=== PATIENT | female | born 1985 | race Caucasian/White ===

== ENCOUNTER 2024-11-24 08:58 | Outpatient (OUT) | payer OTHER, SELFPAY ==
[2024-11-24 09:42] LABS: Basophils Absolute Auto 0.1 10^3/uL (0.0-0.1); Basophils Percent Auto 0.6 % (0.2-2.0); Eosinophils Percent Auto 0.4 % (0.9-7.0); Hematocrit 42.5 % (36.0-48.0); Hemoglobin 14.1 g/dL (12.0-16.0); Immature Granulocytes Abs Auto 0.04 10^3/uL (0.00-0.03); Immature Granulocytes Pct Auto 0.4 % (0.0-0.5); Lymphocytes Absolute Auto 1.6 10^3/uL (1.2-3.8); Lymphocytes Percent Auto 17.1 % (20.5-60.0); Mean Corpuscular HGB Conc 33.2 g/dL (29.9-35.2); Mean Corpuscular Hemoglobin 27.7 pg (26.7-34.0); Mean Corpuscular Volume 83.5 fL (81.0-99.0); Mean Platelet Volume 11.2 fL (9.5-13.5); Monocytes Absolute Auto 0.4 10^3/uL (0.3-0.8); Monocytes Percent Auto 4.1 % (1.7-12.0); Neutrophils Absolute Auto 7.4 10^3/uL (1.4-6.5); Neutrophils Percent Auto 77.4 % (43.0-75.0); Platelet Count 235 10^3/uL (150-450); Red Blood Count 5.09 10^6/uL (4.20-5.40); Red Cell Distribution Width 13.7 % (11.0-15.0); White Blood Count 9.5 10^3/uL (4.0-11.0)
[2024-11-24 09:52] LABS: Estimated Average Glucose 120 mg/dL; Glycohemoglobin A1C 5.8 % (4.5-6.2)
[2024-11-24 10:07] LABS: Alanine Aminotransferase 28 U/L (14-59); Albumin Level 3.8 g/dL (3.4-5.0); Alkaline Phosphatase 64 U/L (46-116); Anion Gap 13.7; Aspartate Amino Transferase 19 U/L (15-37); BUN Creatinine Ratio 13.2; Bilirubin Total 0.4 mg/dL (0.2-1.0); Calcium 8.7 mg/dL (8.5-10.1); Carbon Dioxide 26.2 mmol/L (21.0-32.0); Chloride 103 mmol/L (98-107); Chol HDL Ratio 3.1; Cholesterol 150 mg/dL (<=200); Estimated GFR (African America >60 (>=60 mL/min/1.73m^2); Estimated GFR (Non-African Ame >60 (>=60 mL/min/1.73m^2); Free T3 2.33 pg/mL (2.18-3.98); Globulin 3.8 g/dL; Glucose 107 mg/dL (74-106); HDL Cholesterol 48 mg/dL (40-60); LDL Cholesterol Calculated 91.4 mg/dL; Potassium 3.9 mmol/L (3.5-5.1); Sodium 139 mmol/L (136-145); Thyroid Stimulating Hormone 1.106 uIU/mL (0.358-3.740); Total Protein 7.6 g/dL (6.4-8.2); Triglycerides 53 mg/dL (<=150); VLDL CHOLESTEROL 10.6 mg/dL
[2024-11-24 10:33] LABS: Free T4 0.76 ng/dL (0.76-1.46)
[2024-11-25 04:10] LABS: Vitamin B12 526 pg/mL (232-1245)
[2024-11-25 07:08] LABS: Prolactin 12.9 ng/mL (4.8-33.4)
[2024-11-25 08:08] LABS: DHEA-Sulfate 78.6 ug/dL (57.3-279.2); FSH 1.4 mIU/mL (.); Progesterone 12.3 ng/mL (.)
== END 2024-11-24 08:59 | disposition home or self-care (01) ==
LOC: LAB 09:01
PROVIDERS: PCP Family Medicine; Visit Provider Family Medicine
DX: Z00.00 Encounter for general adult medical examination without abnormal findings (principal); G47.33 Obstructive sleep apnea (adult) (pediatric); E34.9 Endocrine disorder, unspecified; R53.83 Other fatigue
CPT/HCPCS: 36415; 80053; 80061; 82306; 82533; 82607; 82627; 82670; 82679; 82746; 83001; 83002; 83036; 84144; 84146; 84270; 84402; 84403; 84439; 84443; 84481; 85025; 95806

== ENCOUNTER 2024-11-24 10:00 | Outpatient (OUT) | payer OTHER, SELFPAY ==
--- OUTSIDE RECORDS SUMMARY | 2024-11-25 10:42 | XMS_ITS | Clinical Summary ---
Author Organization [facility] Address [address] [place] [address] Care Team Providers Care Mirror Inspector Name Role Phone Unavailable Primary Care Provider Unavailabl e Family History Relation Name Status Comments Daughter 1 Alive Daughter 2 Alive Father Alive Mother Alive Son Alive Social History Tobacco Use Types Packs/Day Years Used Date Smoking Tobacco: Never Tobacco Cessation:Counseling Given: Not Answered Alcohol Use Standard Drinks/Week Comments Never 0 (1 standard drink = 0.6 oz pure alcohol) Caffeine: more than 4 cups per day coffee,soda, tea Comments Unknown Sex and Gender Information Value Date Recorded Sex Assigned at Not on file Legal Sex Female 8:06 PM EDT Gender Identity Not on file Sexual Orientation Not on file Last Filed Vital Signs Vital Sign Reading Time Taken Comments Blood Pressure 120/74 07/03/2018 12:00 PM EST Pulse - - Temperature - - Respiratory Rate - - Oxygen Saturation - - Inhaled Oxygen Concentration - - Weight 67.9 kg (149 lb 9.6 oz) 07/03/2018 12:00 PM EST Height 157.5 cm (5' 2 ) 07/03/2018 12:00 PM EST Body Mass Index 27.36 07/03/2018 12:00 PM EST Plan of Treatment Upcoming Encounters Date Type Department Care Team (Late st Contact Info) Description 12/22/2024 8:30 AM EDT Office Visit [facility] [address] [place] [address] Lewis Garcia DO [address] [place], [place] [id number]
--- OUTSIDE RECORDS SUMMARY | 2024-11-25 10:42 | XMS_ITS | Clinical Summary ---
Author Organization [facility] Address [address] [facility] [place] [address] Care Team Providers Care Personnel Representative Name Role Phone Radha Gomez Katelyn ASSOCIATION EXECUTIVE - WET MIX OPERATOR Primary Care Prov ider Allergies No known active allergies Medications No known medications Active Problems No known active problems Resolved Problems Problem Noted Date Diagnosed Date Resolved Date Well adult health check 02/07/201602/16 Social History Tobacco Use Types Packs/Day Years Used Date Smoking Tobacco: Never Alcohol Use Standard Drinks/Week Comments Not Asked 0 (1 standard drink = 0.6 oz pur e alcohol) Comments No Sex and Gender Information Value Date Recorded Sex Assigned at Not on file Legal Sex Female 8:45 AM EDT Gender Identity Not on file Sexual Orientation Not on file Last Filed Vital Signs Vital Sign Reading Time Taken Comments Blood Pressure 108/76 02/07/2016 1:48 PM EDT Pulse 80 02/07/2016 1:48 PM EDT Temperature 36.9 C (98.5 F) 02/07/2016 1:48 PM EDT Respiratory Rate 14 02/07/2016 1:48 PM EDT Oxygen Saturation - - Inhaled Oxygen Concentration - - Weight 57.6 kg (127 lb) 02/07/2016 1:48 PM EDT Height 160 cm (5' 3 ) 02/07/2016 1:48 PM EDT Body Mass Index 22.5 02/07/2016 1:48 PM EDT Plan of Treatment Not on file Insurance [employer] Care Teams Personnel Representative Relationship Specialty Start Date End Date Radha Gomez, ASSOCIATION EXECUTIVE - WET MIX OPERATOR [address] [place] [address] PCP - General Certified Nurse Practitioner 09/16/15
== END 2024-11-24 10:01 | disposition home or self-care (01) ==
LOC: SLEEP 11-25 10:39
PROVIDERS: PCP Family Medicine; Visit Provider Family Medicine
DX: G47.33 Obstructive sleep apnea (adult) (pediatric) (principal)
CPT/HCPCS: 95806

== ENCOUNTER 2024-12-22 12:36 | Outpatient (REF) | payer OTHER, SELFPAY ==
--- OUTSIDE RECORDS SUMMARY | 2024-09-30 08:02 | XMS_ITS ---
Author Organization [facility] in [place] Address [address] [place] [address] Care Team Providers Care Section 8 Property Manager Name Role Phone Marcial Chacon Primary Care Provider REASON FOR VISIT records Encounters Encounter Location Date Provider Diagnosis [address] [address] 09/30/2024 Marcial Chacon Plan Of Treatment No Information Progress Notes * Alan MANB: 8 (38 yo F)Acc No.[id number]:09/30/2024 Patient: Allyson DOWD :1985 A ge:38 Y S ex:Female Address:[address] [facility] [place], [address] * true * Date: Generated for Santoi essence/Sabra/eTransmitting on: 0 12/22/2024 12:40 PM EDT
--- OUTSIDE RECORDS SUMMARY | 2024-11-23 12:02 | XMS_ITS ---
Author Organization [facility] in [place] Address [address] [place] [address] Care Team Providers Care Railroad Yard Worker Name Role Phone Marcial Chacon Primary Care Provider Results Component Value Reference Range Notes DHEA-S (Not yet reviewed by provider) Interpretation: Performing Lab: Notes/Report: DHEA-S 78.5 ESTRONE (Not yet reviewed by provider) Interpretation: Performing Lab: Notes/Report: ESTRONE 89 SEX HORMONE BINDING GLOBULIN (Not yet reviewed by provider) Interpretation: Performing Lab: Notes/Report: SEX HORM BIND GLOB 61.0 VITAMIN D, 25 LEVEL (TOTAL) (Not yet reviewed by provider) Interpretation: Performing Lab: Notes/Report: VITAMIN D,25-OH,TOTAL,IA 38.1 REASON FOR VISIT lab orders Encounters Encounter Location Date Provider Diagnosis [facility] [address] [place] [address] 11/23/2024 Marcial Oswaldo Endocrine disorder, unspecified E34.9 and Other fatigue R53.83 Assessments Encounter Date Diagnosis (ICD Code) Assessment Notes Treatment Notes Treatment Clinical Notes Section Notes 11/23/2024 Endocrine disorder, unspecified (ICD-10 - E34.9) 11/23/2024 Other fatigue (ICD-10 - R53.83) Plan Of Treatment Pending Test Test Name Order Date DHEA-S 11/23/2024 ESTRONE 11/23/2024 SEX HORMONE BINDING GLOBULIN 11/23/2024 VITAMIN D, 25 LEVEL (TOTAL) 11/23/2024 Progress Notes * Telma MAN:[birth year] (39 yo F)Acc No.[id number]:11/23/2024 Patient: Allyson DOWD :1985 A ge:39 Y S ex:Female Address:[address] [place] [address] , [place], [address] Subjective: * Chief Complaints: * L ab orders * Medical History: * Surgical History: * Hospitalization/Major Diagno stic Procedure: * Medications: Objective: * Vitals: * Physical Examination: Assessment: * Assessment: 1. E ndocrine disorder, unspecified - E34.9 (Primary) 2 . O ther fatigue - R53.83 Plan: * Treatment: 2. O ther fatigue L AB: VITAMIN D, 25 LEVEL (TOTAL) * Procedure Codes: * true * Date: Generated for Chon lowry/Sabra/Paulina on: 0 12/22/2024 12:39 PM EDT
--- OUTSIDE RECORDS SUMMARY | 2024-12-16 11:00 | XMS_ITS ---
Author Organization [facility] in [place] Address [address] [place] [address] Care Team Providers Care Retail Custodial Associate Name Role Phone Marcial Chacon Primary Care Provider [phone] Allergies Allergen (clinical drug ingredient) Drug/Non Drug Allergy documented on EMR Reaction Allergy Type Onset Date Status No Known Allergies (uncoded) Unknown Allergy Active REASON FOR VISIT Review labs Social History Tobacco Use: Social History Observation Description Date Details (start date - stop date) Never Smoker NA - NA Tobacco Control (Standard) Question Answer Notes Tobacco use: Nonsmoker Vital Signs Weight 187 lbs 12/16/2024 Height 62 in 12/16/2024 Blood pressure systolic 132 mm Hg 12/17/19 25 Blood pressure diastolic 82 mm Hg 025 Heart Rate 92 /min 12/16/2024 Respiratory Rate 16 /min 12/16/2024 BMI 34.2 kg/m2 12/16/2024 Oximetry 98 % 12/16/2024 Encounters Encounter Location Date Provider Diagnosis [address] [address] 12/16/2024 Marcial Chacon Plan Of Treatment No Information Progress Notes * Alan MANB: 8 (39 yo F)Acc No.[id number]:12/16/2024 UNLOCKED PROGRESS NOTE Established Patient: Clayton DOWDantha Provider: Ayaan Chacon DO :1985 A ge:39 Y S ex:Female Date:12/16/2024 Address:[facility] [address] [place], [place], [id number] Check In:03:00 PM ESTCheck O ut:03:51 PM EST Subjective: * Chief Complaints: * 1 . Review labs. * HPI: G eneral: Patient presents today for review labs.-MV pt did the at home sleep study from [facility] they recommended the overnight study but insurance wont cover it insurance recommends CPAP instead of in home study. * ROS: G eneral/Constitutional: Significant change in weight d enies. E xercise Intolerance d enies. N ight sweats d enies. F ever d enies. E yes: Dry eyes D enies. V ision changes d enies. ? E NMT: Sore Throat d enies. N ose Bleeds d enies. D ifficulty hearing d enies. E ar pain d enies. N ose/sinus problems d enies. S noring d enies. B leeding gums d enies. D ry mouth d enies. M outh ulcers denies. O ral abnormalities d enies. T eeth problems d enies. C ardiovascular: Shortness of Breath w/Walking d enies. S hortness of Breath w/lying flat d enies. A rm pain on exertion d enies. C hest pain d enies.?Heart murmur d enies. P alpitations d enies. R espiratory: Coughing up blood d enies. C ough d enies. S hortness of breath d enies. W heezing d enies. G astrointestinal: Change in appetite d enies. V omiting blood d enies. A bdominal pain d enies. C onstipation d enies. D iarrhea d enies. V omiting d enies. G enitourinary: Dysuria/Increased Frequency d enies. H ematuria d enies. I ncontinence d enies. D ifficulty urinating d enies. M usculoskeletal: Swelling in the extremities d enies. A rthralgias/joint pain D enies. B ack pain d enies. W eakness of muscles d enies. M uscle aches d enies. S kin: Jaundice D enies. M ole(s) d enies. R félix d enies. N eurologic: Dizziness d enies. L oss of consciousness d enies.?Numbness d enies. W eakness d enies. H eadache d enies. S eizures d enies. P sychiatric: Alcohol abuse d enies. F eeling safe in relationship?denies. D epression d enies. A nxiety d enies. S leep Disturbances d enies. E ndocrine: Fatigue d enies. H ematologic/Lymphatic: Swollen Glands d enies. B ruising d enies. ? A llergy/Immunology: Runny nose d enies. S inus pressure d enies. F requent sneezing d enies. H rossana d enies. I tching d enies. * Medical History: M edical History Verified. * Surgical History: h ysterectomy with 1 ooph 2013. * Family History: F ather: alive. M other: alive. * Social History: T obacco Use: T obacco Control (Standard) T obacco use: N onsmoker * Medications: N one * Allergies: N o Known Allergies: Allergy. Objective: * Vitals: W t:187lbs, Ht: 62 in, BP:132/82mm Hg, HR:92/min, RR:16/min, BMI:34.2Index, Oxygen sat %:98%, Ht-cm: 157.48 cm, Wt-k.82 kg. * Examination: G eneral Examination: GENERAL APPEARANCE: h ealthy Appearing , well nourished , well developed Level of distress: NAD, a mbulating normally. ENMT: n o lesions on external ear, EACs clear, TMs clear, no hearing loss, no lesions on external ears, nares patent, nasal passages clear, no sinus tenderness, no nasal discharge, no mouth or lip ulcers, no bleeding gums, moist mucous membranes, no erythema, no exudates. HEAD: n ormocephalic, atraumatic. EYES: n on-injected, no discharge, no pallor, PERRLA , EOMI, lens clear, sclera non- icteric, peripheral vision grossly intact, acuity grossly intact. LUNGS: n o dyspnea, breath sounds normal , good air movement, CTA except as noted, no wheezing, no rales/crackles, no rhonchi. CARDIO: n ot displaced, RRR, S1, S2 normal , no murmurs, rubs, gallops , no carotid bruits, normal throughout. ABDOMEN: n ormal bowel sounds , soft, non tender, not distended, no guarding, no rebound tenderness, no masses, no CVA tenderness, liver non tender, no hepatomegaly. BACK: n ormal curvature. MUSCULOSKELETAL: n ormal motor strength, normal tone, normal movement of all extremities, no bony abnormalities, no contractures, no malalignment, no tenderness, no cyanosis, no edema, no varicosities. SKIN: n o rash, no lesions, no ulcer, no abnormal nevi, no induration, no nodules, good turgor, no jaundice. EXTREMITIES: No edema. NEUROLOGIC: n ormal gait, normal station, cranial nerves grossly intact, sensation grossly intact, DTRs 2+ bilaterally throughout, no tremor. PSYCH: j udgement and insight good, active and alert, normal mood, normal affect. NECK/THYROID: N nadir supple, trachea midline, no masses, FROM, no cervical LAD, no supraclavicular LAD, no axillary LAD, no inguinal LAD, no enlargement, non-tender, no nodules. Assessment: Plan: * Treatment: * * Electronic signature of Severo Chacon DO, [id number] on 12/22/2024 at 08:23 AM EDT Sign off status: Pending Visit Status: C HK (Check Out) * Provider: Ayaan Chacon DO Date: 12/16/2024 Generated for Chon lowry/Sabra/Paulina on: 12/22/2024 08:23 AM EDT History and Physical Notes * Examination Category Sub-Category Detail Notes Category Not es General Examination GENERAL APPEARANCE: healthy Appearing , well nourished , well developed Level of distress: NAD, ambulating normally EYES: non-injected, no dis charge, no pallor, PERRLA , EOMI, lens clear, sclera non-icteric, peripheral vision grossly intact, acuity grossly intact CARDIO: not displaced, RRR, S1, S2 normal , no murmurs, rubs, gallops , no carotid bruits, normal throughout LUNGS: no dyspnea, breath s ounds normal , good air movement, CTA except as noted, no wheezing, no rales/crackles, no rhonchi ABDOMEN: normal bowel sounds , soft, non tender, not distended, no guarding, no rebound tenderness, no masses, no CVA tenderness, liver non tender, no hepatomegaly NEUROLOGIC: normal gait, normal station, cranial nerves grossly intact, sensation grossly intact, DTRs 2+ bilaterally throughout, no tremor SKIN: no rash, no lesions, no ulcer, no abnormal nevi, no induration, no nodules, good turgor, no jaundice EXTREMITIES: No edema BACK: normal curvature MUSCULOSKELETAL: normal motor strengt h, normal tone, normal movement of all extremities, no bony abnormalities, no contractures, no malalignment, no tenderness, no cyanosis, no edema, no varicosities PSYCH: judgement and insigh t good, active and alert, normal mood, normal affect ENMT: no lesions on assistant floor covering printer al ear, EACs clear, TMs clear, no hearing loss, no lesions on external ears, nares patent, nasal passages clear, no sinus tenderness, no nasal discharge, no mouth or lip ulcers, no bleeding gums, moist mucous membranes, no erythema, no exudates HEAD: normocephalic, atrau matic NECK/THYROID: Neck supple, trachea midline, no masses, FROM, no cervical LAD, no supraclavicular LAD, no axillary LAD, no inguinal LAD, no enlargement, non-tender, no nodules
--- OUTSIDE RECORDS SUMMARY | 2024-12-22 08:30 | XMS_ITS | Encounter Summary ---
Author Organization [facility] Address [address] [facility] [place] [address] Care Team Providers Care Pouch Maker Name Role Phone Unavailable Primary Care Provider Unavailabl e Reason for Visit * Reason Comments Gynecologic Exam Encounter Details Date Type Department Care Team (Late st Contact Info) Description 12/22/2024 8:30 AM EDT Office Visit [facility] [address] [place] [id number] Lewis Garcia, [address] [facility] [facility] [place] [address] Well woman exam with routine gynecological exam; H/O: hysterectomy; Insulin resistance; PCOS (polycystic ovarian syndrome) Social History Tobacco Use Types Packs/Day Years Used Date Smoking Tobacco: Never Alcohol Use Standard Drinks/Week Comments Never 0 (1 standard drink = 0.6 oz pure alcohol) Caffeine: more than 4 cups per day coffee,soda, tea Comments No Sex and Gender Information Value Date Recorded Sex Assigned at Not on file Legal Sex Female 8:06 PM EDT Gender Identity Not on file Sexual Orientation Not on file documented as of this encounter Last Filed Vital Signs Vital Sign Reading Time Taken Comments Blood Pressure 120/78 12/22/2024 8:43 AM EDT Pulse - - Temperature - - Respiratory Rate - - Oxygen Saturation - - Inhaled Oxygen Concentration - - Weight 85.3 kg (188 lb) 12/22/2024 8:43 AM EDT Height 157.5 cm (5' 2 ) 12/22/2024 8:43 AM EDT Body Mass Index 34.39 12/22/2024 8:43 AM EDT documented in this encounter Progress Notes * Caroline Dodd, RELIGIOUS ACTIVITIES DIRECTOR - 12/22/2024 8:30 AM EDT Reason for Appointment: Patient ID: Allyson Man is a 39 y.o. female who presents for Gynecologic Exam Patient presents today for Annual Exam. MEDICATIONS Current Outpatient Medications Medication Instructions dexAMETHasone (Decadron) 1 MG tablet ALLERGIES No Known Allergies PROBLEMS Active Ambulatory Problems Diagnosis Date Noted No Active Ambulatory Problems Resolved Ambulatory Problems Diagnosis Date Noted No Resolved Ambulatory Problems Past Medical History: Diagnosis Date Allergies ASCUS with positive high risk HPV cervical Cervical dysplasia History of loop electrical excision procedure (LEEP) Ovarian cysts HISTORY PAST MEDICAL HISTORY SOCIAL HISTORY Past Medical History: Diagnosis Date Allergies ASCUS with positive high risk HPV cervical Cervical dysplasia History of loop electrical excision procedure (LEEP) Ovarian cysts Social History Tobacco Use Smoking status: Never Smokeless tobacco: Not on file Substance Use Topics Alcohol use: Never Comment: Caffeine: more than 4 cups per day coffee,soda, tea Drug use: Never FAMILY HISTORY No family history on file. SURGICAL HISTORY Past Surgical History: Procedure Laterality Date CERVICAL BIOPSY W/ LOOP ELECTRODE EXCISION LEEP HYSTERECTOMY 06/20/2018 Dr. Garcia OOPHORECTOMY 2013 partial ovary removal OTHER SURGICAL HISTORY 06/2012 ESSure (fallopian tube spring insertion) PAP SMEAR 08/19/2019 negative REVIEW OF SYSTEMS Review of Systems: Review of Systems Constitutional: Negative. HENT: Negative. Eyes: Negative. Respiratory: Negative. Cardiovascular: Negative. Gastrointestinal: Negative. Genitourinary: Negative. Musculoskeletal: Negative. Skin: Negative. Neurological: Negative. All other systems reviewed and are negative. Hematological: Negative. Endocrine: Negative. Allergic/Immunologic: Negative. OBJECTIVE Objective: Physical Exam Constitutional: Appearance: Normal appearance. She is well-developed. Genitourinary: Vulva normal. Vaginal cuff intact. Cervix is absent. Uterus is absent. Cardiovascular: Rate and Rhythm: Normal rate and regular rhythm. Abdominal: General: Bowel sounds are normal. There is no distension. Palpations: Abdomen is soft. Tenderness: There is no abdominal tenderness. There is no guarding or rebound. Musculoskeletal: General: No swelling. Normal range of motion. Right lower leg: No edema. Left lower leg: No edema. Neurological: Mental Status: She is alert and oriented to person, place, and time. Skin: General: Skin is warm and dry. Psychiatric: Mood and Affect: Mood normal. Behavior: Behavior normal. Vitals and nursing note reviewed. Exam conducted with a telephone collector present. Vitals: Estimated body mass index is 34.39 kg/m?? as calculated from the following: Height as of this encounter: 5' 2 . Weight as of this encounter: 188 lb. BP: 120/78 No LMP recorded (lmp unknown). Patient has had a hysterectomy. ASSESSMENT & PLAN ICD-10-CM 1. Well woman exam with routine gynecological exam Z01.419 Pap Smear HPV DNA probe, amplified 2. H/O: hysterectomy Z90.710 Orders Placed This Encounter Procedures HPV DNA probe, amplified Annual Wellness Exam (Post Hysterectomy): Patient presents today for routine annual exam. Patient states she has complaints of unwanted dark facial hair, pt seeing buderer for compound. Discussed weight loss, metformin and Adipex. Pt to return in 4 weeks for adipex and increase of metformin to 1000mg. . Patients vitals were reviewed and within normal limits. Growth and development is noted to be appropriate for age. Menstrual history is noted to be obsolete due to patients history of hysterectomy. No mental health concerns was expressed. Pap Smear: Speculum was inserted into the vagina and pap was obtained without difficulty. HPV testing was performed per guidelines. Patient was advised that pap results could take anywhere from 7 to 10 days to receive and our office will reach out to the patient with those once we have them. Patient can also view results via [employer]. I reinforced importance of condom use for STI prevention. Patient declined cultures to be performed with today's visit. Breast Exam: Upon examination, clinical breast exam was noted to be normal. Patient was counseled on breast self-awareness, including the importance of knowing what is normal for her own breasts and promptly reporting any changes such as new lumps, skin dimpling, nipple discharge, or pain. Screening mammogram recommended annually beginning at age 40 or earlier if risk factors are present. Discussed signs and symptoms of breast cancer and when to seek medical attention. Answered all patient questions. Follow Up: Patient is to return to our office in one year for annual exam unless needed otherwise. Documented by Caroline Dodd LPN on behalf of: Lewis Garcia DO documented in this encounter Plan of Treatment Upcoming Encounters Date Type Department Care Team (Late st Contact Info) Description 01/19/2025 8:50 AM EDT Office Visit [facility] [address] [address] [address] Gabriela Hayden PA [address] [facility] [place] [address] Scheduled Orders Name Type Priority Associated Diagnoses Orde r Schedule Pap Smear Pathology and Cytology Routine Well woman exam with routine gynecological exam Ordered: 12/22/2024 HPV DNA probe, amplified Microbiology Routine Well woman exam with routine gynecological exam Ordered: 12/22/2024 documented as of this encounter Procedures Procedure Name Priority Date/Time Associated Diagnosis Comments PAP SMEAR Routine 08/19/2019 12:00 AM EST documented in this encounter Results * Pap Smear (08/19/2019 12:00 AM EST) Swab Cervical swab / Unknown us Lewis Garcia DO LAB CYTOLOGY ORDERABLES Final Re sult EXTERNAL LAB documented in this encounter Visit Diagnoses Diagnosis Well woman exam with routine gynecological exam Routine gynecological examination H/O: hysterectomy Acquired absence of both cervix and uterus Insulin resistance Other abnormal glucose PCOS (polycystic ovarian syndrome) Polycystic ovaries documented in this encounter
--- OUTSIDE RECORDS SUMMARY | 2024-12-22 12:40 | XMS_ITS | Patient Health Record ---
Author Organization [facility] Address [address] [place] [address] Care Team Providers Care Emergency Medical Service Manager Name Role Phone Marcial Chacon Primary Care Provider Allergies Allergen (clinical drug ingredient) Drug/Non Drug Allergy documented on EMR Reaction Allergy Type Onset Date Status No Known Allergies (uncoded) Unknown Allergy Active Results Component Value Reference Range Notes HEMOGLOBIN A1C (GLYCO) (Not yet reviewed by provider) Interpretation: Performing Lab: Notes/Report: GLU-AV 120 GLYCO A1C 5.8 LIPID PANEL (CHOL/TRIG/HDL/L DL) (Not yet reviewed by provider) Interpretation: Performing Lab: Notes/Report: CHOLESTEROL 150 120 - 200 MG/DL TRIGLYCERIDES 53 30 - 150 MG/DL HDL (DIRECT) 48 40 - 60 MG/DL LDL (CALC) 91.4 0 - 130 MG/DL VLDL (CALC) 10.6 7 - 46 MG/DL CHOL-HDL RATIO 3.1 0.0 - 4.4 TESTOSTERONE, FREE (INCLUDES FREE,TOTAL and FTI) (Not yet reviewed by provider) Interpretation: Performing Lab: Notes/Report: TESTOSTERONE, TOT 26 FR TESTOSTERONE INDEX 0.3 FSH, LH, and PROLACTIN (Not yet reviewed by provider) Interpretation: Performing Lab: Notes/Report: FSH 1.4 LH 8.0 PROLACTIN 12.9 PROGESTERONE (Not yet review ed by provider) Interpretation: Performing Lab: Notes/Report: PROGESTERONE 12.3 T3 FREE (T3FR) (Not yet revi ewed by provider) Interpretation: Performing Lab: Notes/Report: T3, FREE 2.33 T4 FREE (T4FR) (Not yet revi ewed by provider) Interpretation: Performing Lab: Notes/Report: T4, FREE 0.76 TSH (Not yet reviewed by pro vider) Interpretation: Performing Lab: Notes/Report: TSH 1.106 CORTISOL, BLOOD (Not yet rev iewed by provider) Interpretation: Performing Lab: Notes/Report: CORTISOL, BLD 0.6 ESTRADIOL (E2)* (Not yet rev iewed by provider) Interpretation: Performing Lab: Notes/Report: ESTRADIOL (E2) 359.0 VITAMIN B12 LEVEL AND FOLATE (FOLIC ACID) (Not yet reviewed by provider) Interpretation: Performing Lab: Notes/Report: VITAMIN B12 526 FOLATE, SERUM 20.40 CMP (COMP MET GARCIA) w/eGFR CK D-EPI (Not yet reviewed by provider) Interpretation: Performing Lab: Notes/Report: GLUCOSE (FBS) 107 BUN (UREA NTORGEN) 12.0 CREATININE 0.91 GFR CKD >60 SODIUM (NA) 139 POTASSIUM (K) 3.9 CHLORIDE (CL) 103 CARBON DIOXIDE 26.2 CALCIUM 8.7 ALBUMIN, BLOOD 3.8 PROTEIN, TOTAL (TP) 7.6 ALKALINE PHOSPHATE (ALP) 64 ALT (SGPT) 28 AST (SGOT) 19 BILIRUBIN, TOTAL 0.4 BUN/CREATININE RATIO 13.2 GLOBULIN 3.8 ALBUMIN/GLOBULIN RATIO 1.0 CBC WITH DIFF (Not yet revie wed by provider) Interpretation: Performing Lab: Notes/Report: WBC 9.5 RBC 5.09 HEMOGLOBIN 14.1 HEMATOCRIT 42.5 MCV 83.5 MCH 27.7 MCHC 33.2 RDW-SD 13.7 PLT 235 DHEA-S (Not yet reviewed by provider) Interpretation: Performing Lab: Notes/Report: DHEA-S 78.5 ESTRONE (Not yet reviewed by provider) Interpretation: Performing Lab: Notes/Report: ESTRONE 89 SEX HORMONE BINDING GLOBULIN (Not yet reviewed by provider) Interpretation: Performing Lab: Notes/Report: SEX HORM BIND GLOB 61.0 VITAMIN D, 25 LEVEL (TOTAL) (Not yet reviewed by provider) Interpretation: Performing Lab: Notes/Report: VITAMIN D,25-OH,TOTAL,IA 38.1 Reason For Referral No Information Social History Tobacco Use: Social History Observation Description Date Details (start date - stop date) Never Smoker NA - NA Tobacco Control (Standard) Question Answer Notes Tobacco use: Nonsmoker Problems Problem Type SNOMED Code ICD Code Onset Dates Problem Status W/U Status Risk Notes Problem 479484882 Other obesity due to excess calories (E66.09) Active confirmed Problem 092190487201 Somnolence (R40.0) Active confirmed Problem [id number] Chronic fatigue, unspecified (R53.82) Active confirmed Problem [id number] Body mass index [BMI] 33.0-33.9, adult (Z68.33) Active confirmed Vital Signs Heart Rate 92 /min 12/16/2024 Respiratory Rate 16 /min 12/16/2024 Oximetry 98 % 12/16/2024 Blood pressure diastolic 82 mm Hg 12/16/2024 Height 62 in 12/16/2024 Blood pressure systolic 132 mm Hg 12/16/2024 Weight 187 lbs 12/16/2024 BMI 34.2 kg/m2 12/16/2024 Procedures Procedure Date Ordered Date Performed Result Body Sit e Sleep study - Diagnostic Polysonogram 09/30/2024 N/A Encounters Encounter Location Date Provider Diagnosis [address] [place] [address] 12/16/2024 Marcial Chacon [facility] [address] [place] [address] 09/30/2024 Marcial Chacon Encounter for [facility] adult medical examination without abnormal findings Z00.00 ; Chronic fatigue, unspecified R53.82 ; Other obesity due to excess calories E66.09 ; Body mass index [BMI] 33.0-33.9, adult Z68.33 ; Obesity, class 1 E66.811 ; Somnolence R40.0 and Impacted cerumen, left ear H61.22 [facility] [address] [place] [address] 09/30/2024 Marcial Chacon [facility] [address] [place] [address] 11/23/2024 Marcial Chacon Endocrine disorder, unspecified E34.9 and Other fatigue R53.83 Assessments Encounter Date Diagnosis (ICD Code) Assessment Notes Treatment Notes Treatment Clinical Notes Section Notes 09/30/2024 Chronic fatigue, unspecified (ICD-10 - R53.82) labs - tx if abnormal set up sleep study at [facility] ?2 hour PP insulin level d/w pt that she can look into [facility] 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 09/30/2024 Encounter for general adult medical examination without abnormal findings (ICD-10 - Z00.00) ?insulin lab get copy of last tatyana 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 diet/exercise eye and dental exams yearly rtc 1 year labs rec flu shot yearly rec dtap q10 years rec hpv vaccines 11/23/2024 Endocrine disorder, unspecified (ICD-10 - E34.9) 11/23/2024 Other fatigue (ICD-10 - R53.83) 09/30/2024 Other obesity due to excess calories (ICD-10 - E66.09) diet/exercise 09/30/2024 Body mass index [BMI] 33.0-33.9, adult (ICD-10 - Z68.33) 09/30/2024 Obesity, class 1 (ICD-10 - E66.811) 09/30/2024 Somnolence (ICD-10 - R40.0) diet/exercise labs sleep study to r/o KAY 09/30/2024 Impacted cerumen, left ear (ICD-10 - H61.22) debrox otc rtc prn Plan Of Treatment Pending Test Test Name Order Date DHEA-S 09/30/2024 DHEA-S 11/23/2024 ESTRONE 11/23/2024 HEMOGLOBIN A1C (GLYCO) 09/30/2024 LIPID PANEL (CHOL/TRIG/HDL/LDL) 10/01/19 25 TESTOSTERONE, FREE (INCLUDES FREE,TOTAL and FTI) 09/30/2024 FSH, LH, and PROLACTIN 09/30/2024 PROGESTERONE 09/30/2024 SEX HORMONE BINDING GLOBULIN 11/23/2024 T3 FREE (T3FR) 09/30/2024 T4 FREE (T4FR) 09/30/2024 TSH 09/30/2024 VITAMIN D, 25 LEVEL (TOTAL) 11/23/2024 CORTISOL, BLOOD 09/30/2024 ESTRADIOL (E2)* 09/30/2024 Sleep study - Diagnostic Polysonogram VITAMIN B12 LEVEL AND FOLATE (FOLIC ACID ) 09/30/2024 CMP (COMP MET GARCIA) w/eGFR CKD-EPI 2024 CBC WITH DIFF 09/30/2024 Insurance Providers Payer Name Payer Address Payer Phone Subscriber Number Group Number Insured Name Patient Relationship to Insured Coverage Start Date Coverage End Date [employer] [address] [address] [place] [address] [id number] Allyson Man Self - patient is the insured 5 Medical (General) History Surgical History Surgery Date(Month/Year) hysterectomy with 1 ooph 2013
--- OUTSIDE RECORDS SUMMARY | 2024-12-22 12:40 | XMS_ITS | Clinical Summary ---
Author Organization [facility] Address [address] [facility] [place] [address] Care Team Providers Care Facility Assistant Name Role Phone Radha Gomez Katelyn DIGITAL EXPERIENCE MANAGER - COMMUNITY DIETITIAN Primary Care Prov ider Allergies No known [...] Insurance [employer] Care Teams Facility Assistant Relationship Specialty Start Date End Date Radha Gomez, DIGITAL EXPERIENCE MANAGER - COMMUNITY DIETITIAN [address] [place] [address] PCP - General Certified Nurse Practitioner 09/16/15
--- OUTSIDE RECORDS SUMMARY | 2024-12-22 12:40 | XMS_ITS | Clinical Summary ---
Author Organization [facility] Address [address] [facility] [place] [address] Care Team Providers Care Chrome Plater Name Role Phone Unavailable Primary Care Provider Unavailabl e Allergies No known active allergies Medications dexAMETHasone (Decadron) 1 MG tablet 09/30/2024 Active metFORMIN XR (Glucophage-XR) 500 MG 24 hr tabletIndication s:Insulin resistance,PCOS (polycystic ovarian syndrome) Take 1 tablet (500 mg) by mouth in the evening. Take with meals Do not crush, chew, or split. 30 tablet 11 12/22/2024 Active Encounters Date Type Department Care Team Description 12/22/2024 8:30 AM EDT Office Visit [address] [place] [address] Lewis Garcia, Well woman exam with routine gynecological exam; H/O: hysterectomy; Insulin resistance; PCOS (polycystic ovarian syndrome) 12/22/2024 Bamboo flowsheet [address] [place] [address] Lewis Garcia DO 12/17/2024 Travel from Last 3 Months Family History Relation Name Status Comments Daughter [...] Mass Index 34.39 12/22/2024 8:43 AM EDT Plan of Treatment Upcoming Encounters Date Type Department Care Team (Late st Contact Info) Description 01/19/2025 8:50 AM EDT Office Visit [facility] [address] [place] [address] Gabriela Hayden PA [address] [place], [place] [id number] [place] [facility] [place] Address: [facility] [id number] [place] [address]
--- OUTSIDE RECORDS SUMMARY | 2024-12-22 12:40 | XMS_ITS | Encounter Summary ---
Author Organization [facility] Address [address] [facility] [place] [address] Care Team Providers Care Private Duty Rn Name Role Phone Unavailable Primary Care Provider Unavailabl e Encounter Details Date Type Department Care Team (Latest Contact Info) Description 12/17/2024 Travel Social History Tobacco Use Types Packs/Day Years [...] on file documented as of this encounter Plan of Treatment Upcoming Encounters Date Type Department Care Team (Late st Contact Info) Description 01/19/2025 8:50 AM EDT Office Visit [facility] [address] [place] [address] Gabriela Hayden PA [address] [place] [address] documented as of this encounter Visit Diagnoses Not on filedocumented in this encounter
--- OUTSIDE RECORDS SUMMARY | 2024-12-22 12:40 | XMS_ITS | Encounter Summary ---
Author Organization [facility] Address [address] [facility] [place] [address] Care Team Providers Care Estimate Clerk Name Role Phone Unavailable Primary Care Provider Unavailabl e Encounter Details Date Type Department Care Team (Late Contact Info) Description 12/22/2024 Bamboo flowsheet [facility] [address] [place] [address] Lewis Garcia, DO [address] [address] [facility] [address] Susannah Cedeno, [facility] Social History Tobacco Use Types Packs/Day Years [...] EDT Office Visit [facility] [address] [place] [address] Gabriela Hayden PA [address] [place], [place] [id number] documented as of this encounter Visit Diagnoses Not on filedocumented in this encounter
[2024-12-24 20:08] LABS: Age Gdln ACOG Testing Note (.); IGP, Aptima HPV, rfx 16/18,45 Note (.)
== END 2024-12-22 12:37 | disposition home or self-care (01) ==
LOC: LAB 12:36
PROVIDERS: PCP Family Medicine; Visit Provider Obstetrics & Gynecology
DX: Z01.419 Encounter for gynecological examination (general) (routine) without abnormal findings (principal)
CPT/HCPCS: 87624; 88175